=== PATIENT | male | born 1955 | race Caucasian/White ===

== ENCOUNTER 2022-07-31 10:23 | Day surgery (SDC) | payer OTHER ==
[~2022-07-31] VITALS: Ht 172.7 cm; Wt 73.9 kg
[2022-07-31] MEDS ORDERED: fentaNYL citrate 0.05 MG/ML VIAL ONE (11:22)
[2022-07-31] MEDS ORDERED: diphenhydrAMINE 50 MG/ML VIAL ONE (11:22)
[2022-07-31] MEDS ORDERED: LIDOCAINE 2% 100 MG/5 ML UJET TP ONE (11:22)
[2022-07-31] MEDS ORDERED: MIDAZOLAM 5 MG/5 ML VIAL ONE (11:22)
[2022-07-31] MEDS ORDERED: MIDAZOLAM 5 MG/5 ML VIAL IV ONE (13:55)
[2022-07-31] MEDS ORDERED: fentaNYL citrate 0.05 MG/ML VIAL IVP ONE (13:55)
== END 2022-07-31 13:00 | disposition home or self-care (01) ==
LOC: EDBD → MOR 10:23 → MMU 10:24 → MOR 13:00
PROVIDERS: ATTEND Internal Medicine Gastroenterology
DX: Z12.11 Encounter for screening for malignant neoplasm of colon (principal); Z86.010 Personal history of colon polyps; I10 Essential (primary) hypertension; Z80.0 Family history of malignant neoplasm of digestive organs; E78.5 Hyperlipidemia, unspecified; Z20.822 Contact with and (suspected) exposure to COVID-19
CPT/HCPCS: J1200; J2250; J3010